=== PATIENT | female | born 1950 ===

== ENCOUNTER → 2018-04-04 | Outpatient (CLI) | payer OTHER, MEDICARE ==
[~2018-04-04] MED LIST: [UNRECOGNIZED DRUG - OTHER]
[2018-04-06 14:09] LABS: HPV 16 Negative (Negative); HPV 18 Negative (Negative); HPV OTHER HR TYPES Negative (Negative)
== END | disposition home or self-care (01) ==
LOC: LAB 08:29 → LAB SHORT 08:29
PROVIDERS: Family Medicine
DX: Z01.419 Encounter for gynecological examination (general) (routine) without abnormal findings (principal)
CPT/HCPCS: 87624; G0145

== ENCOUNTER 2022-05-12 06:36 | Day surgery (SDC) | payer MEDICARE, BC ==
[~2022-05-12] VITALS: Ht 165.1 cm; Wt 59.2 kg
[2022-05-12] MEDS ORDERED: LETR2.5 PO (07:16)
[2022-05-12] MEDS ORDERED: POLYTRIM EYE DR10 M1 BOTHEYES (07:18)
[2022-05-12] MEDS ORDERED: KETO.5OPSO BOTHEYES (07:19)
--- NOTE | 2022-05-12 09:25 | NUR ---
05/12/22 0925 Brandon Jalloh PT REPORTED 4/10 PAIN THROUGHOUT HER STAY IN STEP DOWN. SHE SAID THIS PAIN WAS TOLERABLE, BUT SHE STILL WANTED TYLENOL. SHE REFUSED THE FULL 1,000MG DOSE OF TYLENOL, HOWEVER, AND 500MG WAS ADMINISTERED. PT BEGAN REPORTING MILD NAUSEA IMMEDIATELY PRIOR TO DISCHARGE. SHE SAID SHE WOULD LIKE TO RETURN HOME TO SLEEP RATHER THAN STAY LONGER, DESPITE THE NAUSEA. SHE WAS GIVEN CRAKERS AND AN EMISIS BAG FOR THE RIDE HOME.
== END 2022-05-12 08:30 | disposition home or self-care (01) ==
LOC: ORSCSDS 06:36
PROVIDERS: Ophthalmology
PROC: 08RJ3JZ Replacement of Right Lens with Synthetic Substitute, Percutaneous Approach (ICD-10-PCS; principal; 2022-05-12 07:30)
DX: H25.13 Age-related nuclear cataract, bilateral (principal); I10 Essential (primary) hypertension; Z85.3 Personal history of malignant neoplasm of breast; Z79.899 Other long term (current) drug therapy; E11.9 Type 2 diabetes mellitus without complications
CPT/HCPCS: 82947; A9270; J2001; J2250; J3010; J7040; V2632

== ENCOUNTER 2024-06-26 16:55 | Emergency (ER) | payer MEDICARE, BC ==
[~2024-06-26] VITALS: Ht 162.6 cm; Wt 56.7 kg
[~2024-06-26 16:55] MED LIST changes: +KETO.5OPSO BOTHEYES; +LETR2.5 PO; +POLYTRIM EYE DR10 M1 BOTHEYES
[2024-06-26 18:29] LABS: BASOPHILS ABSOLUTE AUTO 0.02 K/mm3 (0.00-0.23); BASOPHILS PERCENT AUTO 0 % (0-2); EOSINOPHILS PERCENT AUTO 0 % (0-6); Hematocrit 41.7 % (33.0-51.0); Hemoglobin 13.5 g/dL (11.5-16.0); IMMATURE GRAN ABSOLUTE AUTO 0.02 K/mm3 (0.00-0.10); IMMATURE GRAN PERCENT AUTO 0 % (0-1); LYMPHOCYTES ABSOLUTE AUTO 0.53 K/mm3 (0.84-5.20); LYMPHOCYTES PERCENT AUTO 10 % (21-46); MONOCYTES ABSOLUTE AUTO 0.29 K/mm3 (0.16-1.47); MONOCYTES PERCENT AUTO 5 % (4-13); Mean Corpuscular HGB 31.3 pg (26.0-34.0); Mean Corpuscular HGB Conc 32.4 g/dL (31.5-36.5); Mean Corpuscular Volume 97 fL (80-100); Mean Platelet Volume 10.1 fL (9.1-12.4); NEUTROPHILS ABSOLUTE AUTO 4.69 K/mm3 (1.96-9.15); NEUTROPHILS PERCENT AUTO 85 % (41-73); Platelet Count 252 K/mm3 (150-400); RDW Coefficient Variation 14.1 % (11.7-14.2); RDW Standard Deviation 49.7 fL (35.1-46.3); Red Blood Cell Count 4.31 M/mm3 (3.80-5.20); White Blood Cell Count 5.55 K/mm3 (4.00-11.30)
[2024-06-26 18:51] LABS: Albumin, Blood 3.7 g/dL (3.4-5.0); Albumin/Globulin Ratio 0.9 (0.8-1.8); Bilirubin, Total 0.5 mg/dL (0.1-1.0); Bun/Creatinine Ratio 24.1 (12.0-20.0); Creatinine, Blood 0.46 mg/dL (0.40-1.00); Globulin, Blood 4.2 g/dL (2.2-4.0); Potassium, Blood 4.1 mmol/L (3.5-5.5); Total Protein, Blood 7.9 g/dL (6.4-8.2)
[2024-06-26 20:58] LABS: Source, Urine Clean Catch
[2024-06-26 21:01] LABS: Appearance, Urine Hazy (Clear); Bilirubin, Urine Neg (Neg); Blood, Urine 2+ (Neg); Color, Urine Yellow (P-Yellow); Glucose Qualitative, Urine Neg (Neg); Ketones, Urine 4+ (Neg); Leukocyte Esterase, Urine 3+ (Neg); Nitrite, Urine Neg (Neg); Protein, Urine 2+ (Neg); Specific Gravity, Urine 1.025 (1.003-1.022); Urobilinogen, Urine NORM (Normal)
[2024-06-26 21:07] LABS: Mucus Mod (0-Heavy)
[2024-06-26 21:08] LABS: Bacteria Few /hpf; Squamous Epithelial Cells Few /hpf (Few)
[2024-06-26] MEDS ORDERED: ANORO ELLIPTA1 EACH INH (21:35)
[2024-06-26] MEDS ORDERED: LORA10ER PO (21:36)
[2024-06-26] MEDS ORDERED: Vitamin D1000 UNI1 PO (21:36)
[2024-06-26] MEDS ORDERED: Vitamin B Comple1 EA (21:36)
[2024-06-26] MEDS ORDERED: TUMERIC (21:36)
[2024-06-26] MEDS ORDERED: MUSHROOM SUPPLEMENT (21:37)
[2024-06-26] MEDS ORDERED: OLIVE LEAF (21:37)
[2024-06-26] MEDS ORDERED: Ondansetron HCl 2 MG / ML 2ML Vial IV ONE (22:40)
[2024-06-26] MEDS ORDERED: NS 1,000 ML IV SCH (22:40)
[2024-06-26] MEDS ORDERED: CefTRIAXone Sodium 1,000 MG in NS 50 ML IV ONE (22:45)
[2024-06-27] MEDS ORDERED: NS 1,000 ML IV SCH (00:20)
[2024-06-27] MEDS ORDERED: Prochlorperazine Edisylate 10 mg Vial IV ONE (00:55)
[2024-06-27] MEDS ORDERED: DiphenhydrAMINE HCl 50 MG/ML 1ML Vial IV ONE ×2 (00:55→03:35)
[2024-06-27 01:15] LABS: Magnesium, Blood 1.9 mg/dL (1.6-2.4); Phosphorus, Blood 3.5 mg/dL (2.5-4.9)
[2024-06-27 03:30] VITALS: BP 126/79
[2024-06-27] MEDS ORDERED: ONDA4ODT MM (03:35)
[2024-06-27] MEDS ORDERED: NITR100CA PO (03:35)
== END 2024-06-27 03:49 | disposition home or self-care (01) ==
LOC: ER 16:55
PROVIDERS: Emergency Medicine; Physician Assistant; Student in an Organized Health Care Education/Training Program
DX: N39.0 Urinary tract infection, site not specified (principal); E86.0 Dehydration; Z88.0 Allergy status to penicillin; Z79.899 Other long term (current) drug therapy
CPT/HCPCS: 76705; 80053; 81001; 83690; 83735; 84100; 85025; 87086; 93005; 93010; 96361; 96365; 96375; 99284-25; J0696; J0780; J1200; J2405; J7030